=== PATIENT | female | born 1965 | race Caucasian/White ===

== ENCOUNTER 2017-09-13 20:09 | Emergency (ER) | payer OTHER ==
[~2017-09-13] VITALS: Ht 152.4 cm; Wt 68.4 kg
[~2017-09-13 20:09] MED LIST: ALEVE220 M2 PO; DILAUDID2 MG PO; ENULOSE10 GM/15 M PO; NOHOMEMEDS; PERCOCET 5/31 TABLET PO; TRAMADOL HCL50 MG PO; ZOFRAN4 MG PO
[2017-09-13 21:27] LABS: BASOPHIL (%) 0.2 % (0-1); EOSINOPHIL (%) 1.3 % (0-5); EOSINOPHIL COUNT 0.1 K/uL (0-0.3); HEMATOCRIT 41.6 % (36.0-46.0); HEMOGLOBIN 14.5 G/DL (11.9-15.5); IMMATURE GRANULOCYTE (%) 0.4 % (0.0-0.7); LYMPHOCYTE (%) 42.7 % (15-42); LYMPHOCYTE COUNT 3.6 K/uL (1.0-2.8); MCH 31.7 PG (29.0-34.0); MCHC 34.9 G/DL (30.0-36.0); MCV 90.8 FL (83-99); MONOCYTE (%) 5.2 % (3-12); MONOCYTE COUNT 0.4 K/uL (0-0.8); NEUTROPHIL (%) 50.2 % (45-76); NEUTROPHIL COUNT 4.3 K/uL (1.8-6.4); PLATELET COUNT 246 K/uL (156-360); RBC DIS.WIDTH-CV 12.4 % (11.8-14.6); RBC DIS.WIDTH-SD 40.9 % (39-53); RED BLOOD COUNT 4.58 M/uL (3.80-5.20); WHITE BLOOD COUNT 8.5 K/uL (4.1-10.2)
[2017-09-13 21:38] LABS: ALBUMIN 4.2 g/dL (3.2-4.8); CHLORIDE 110 mEq/L (99-109); POTASSIUM 3.7 mEq/L (3.7-5.4); SODIUM 140 mEq/L (136-147)
[2017-09-13 21:40] LABS: GLUCOSE 109 mg/dL (70-99)
[2017-09-13 21:41] LABS: TOTAL PROTEIN 6.8 g/dL (6.4-8.3)
[2017-09-13 21:42] LABS: TOTAL BILIRUBIN 0.3 mg/dL (0.0-1.0)
[2017-09-13 21:44] LABS: ALKALINE PHOSPHATASE 120 IU/L (3-129); GFR ESTIMATE (CALCULATED) > 59 mL/min/
[2017-09-13 21:45] LABS: UREA NITROGEN (BUN) 16 mg/dL (9-23)
[2017-09-13 21:46] LABS: AST (GOT) 17 IU/L (2-34)
[2017-09-13 21:47] LABS: ALT (GPT) 15 IU/L (3-49)
[2017-09-13 23:34] VITALS: BP 115/76
== END 2017-09-13 23:35 | disposition home or self-care (01) ==
LOC: EME 20:09
PROVIDERS: Emergency Medicine
DX: Z43.2 Encounter for attention to ileostomy (principal); R10.30 Lower abdominal pain, unspecified; F17.200 Nicotine dependence, unspecified, uncomplicated; Z90.49 Acquired absence of other specified parts of digestive tract; Z90.711 Acquired absence of uterus with remaining cervical stump; Z88.5 Allergy status to narcotic agent
CPT/HCPCS: 74177; 80053; 85025; 99281; 99285; J7030